=== PATIENT | female | born 1975 ===

== ENCOUNTER 2018-05-31 00:27 | Inpatient (IN) | payer MEDICAID ==
[~2018-05-31] VITALS: Ht 157.5 cm; Wt 88.6 kg
[~2018-05-31 00:27] MED LIST: IBUP-1222 PO; LABE100T6 PO; LISI40TA PO; OXYC-302 PO
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
[2018-05-31 01:00] LABS: BASOPHILS # (AUTO) 0.06 x10^3/uL (0-0.1); BASOPHILS % (AUTO) 1 % (0-1); EOSINOPHILS # (AUTO) 0.22 x10^3/uL (0-0.4); EOSINOPHILS % (AUTO) 2 % (1-7); LYMPHOCYTES # (AUTO) 2.64 x10^3/uL (1-3.4); LYMPHOCYTES % (AUTO) 27 % (22-44); MD NO; MEAN CORPUSCULAR VOLUME 91.1 fL (80-100); MEAN PLATELET VOLUME 8.5 fL (7.4-10.4); MONOCYTES # (AUTO) 0.77 x10^3/uL (0.2-0.8); MONOCYTES % (AUTO) 8 % (2-9); NEUTROPHILS # (AUTO) 6.06 x10^3/uL (1.8-6.8); NEUTROPHILS % (AUTO) 62 % (42-75); PLATELET COUNT 292 x10^3/uL (130-400); RED BLOOD COUNT 5.05 x10^6/uL (3.82-5.3)
[2018-05-31 01:07] LABS: ALANINE AMINOTRANSFERASE 58 U/L (12-78); ALBUMIN 3.9 g/dL (3.4-5.0); ANION GAP 10 mmol/L (5-15); CALCIUM 9.1 mg/dL (8.5-10.1); CHLORIDE 108 mmol/L (98-107); CREATININE 1.01 mg/dL (0.55-1.02)
[2018-05-31 01:09] LABS: ALKALINE PHOSPHATASE 126 U/L (45-117); BILIRUBIN,TOTAL 0.4 mg/dL (0.2-1.0); TOTAL PROTEIN 8.2 g/dL (6.4-8.2)
--- NOTE | 2018-05-31 01:15 | NUR ---
REPORT GIVEN TO BAILEE MANNING
[2018-05-31 01:25] LABS: ACETAMINOPHEN < 2 mcg/mL (10-30); SALICYLATE LEVEL < 1.7 mg/dL (2.8-20.0)
[2018-05-31] MEDS ORDERED: SODIUM CHLORIDE 0.9% 1,000ML IVBOLUS ONE ×2 (01:30→02:30)
[2018-05-31] MEDS ORDERED: ALBUTEROL/IPRATROPIUM 2.5MG/0.5MG, 3 ML ONE (01:34)
[2018-05-31 01:36] LABS: AMPHETAMINE SCREEN, URINE Negative (Negative); BARBITURATE SCREEN, URINE Negative (Negative); BENZODIAZEPINE SCREEN, URINE Negative (Negative); CANNABINOID SCREEN, URINE Negative (Negative); COCAINE SCREEN, URINE Negative (Negative); METHADONE SCREEN, URINE Negative (Negative); OPIATE SCREEN, URINE Negative (Negative)
--- NOTE | 2018-05-31 02:25 | NUR ---
PT C/O CHEST PAIN IN LEFT CHEST, STATED IT FEELS LIKE ELEPHANTS ON HER CHEST. ERP AWARE, HAS GONE IN TO EVAL PT. 2ND IV PLACEMENT BEING ATTEMPTED DUE TO 1ST IV BEING POSITIONAL. WILL CONTINUE TO MONITOR PT. BILAT BEDRAILS UP.
--- NOTE | 2018-05-31 02:45 | NUR ---
2ND IV STARTED, ORDERED 2ND BOLUS HANGING. PT BEING CALM AND COOPERATIVE AT THIS TIME. PT RIGHT HAND HAS BEEN REMOVED FROM RESTRAINTS.
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
--- NOTE | 2018-05-31 04:20 | NUR ---
PT UP TO BATHROOM AGAIN WITH STEADY GAIT. PT CALM. PT GIVEN WARM BLANKET, ON ALL MONITORS. WILL CONTINUE TO MONITOR.
[2018-05-31] MEDS ORDERED: SODIUM CHLORIDE 0.9% 1,000 ML IV ONE (05:00)
--- NOTE | 2018-05-31 05:10 | NUR ---
PT RESTING CALMLY IN BED. ORDERED FLUIDS INFUSING AT THIS TIME.
[2018-05-31] MEDS ORDERED: ONDANSETRON ODT 4 MG PO PRN (06:00)
[2018-05-31] MEDS ORDERED: ACETAMINOPHEN 325 MG TABLET PO PRN (06:00)
[2018-05-31] MEDS ORDERED: BISACODYL 10 MG SUPP PR PRN (06:00)
[2018-05-31] MEDS ORDERED: hydrALAzine 20 MG/ML, 1ML IVPush PRN (06:00)
[2018-05-31] MEDS ORDERED: ONDANSETRON 2MG/ML, 2ML IVPush PRN (06:00)
[2018-05-31] MEDS ORDERED: DOCUSATE 100 MG CAPSULE PO PRN (06:00)
[2018-05-31] MEDS ORDERED: POLYETHYLENE GLYCOL 17 GM PACKET PO PRN (06:00)
[2018-05-31] MEDS ORDERED: POTASSIUM CHLORIDE 40 MEQ in SODIUM CHLORIDE 0.9% 500 ML IV ONE (06:30)
--- NOTE | 2018-05-31 06:30 | NUR ---
ORDERED MEDS STARTED ON PT. PT RESTING SOMULENTLY, HAS BEEN CALM AND FOLLOW COMMANDS. PT A&OX4.
[2018-05-31 06:48] LABS: FREE T4 (FREE THYROXINE) 1.17 ng/dL (0.76-1.46)
[2018-05-31 06:51] LABS: HEMOGLOBIN A1C 5.7 % (4.2-6.3)
[2018-05-31 06:54] LABS: THYROID STIMULATING HORMONE 0.781 mIU/L (0.358-3.740)
--- NOTE | 2018-05-31 06:54 | NUR ---
Recieved bedside report from BAILEE Mcknight. All questions answered. NADN. Pt awake and involved in bedside report. Pt connected to PIV fluids and medications per EMAR. Pt connected to NIBP and continous pulse ox, and conveyor monitor. All safety measures in place. Call light within reach. Sitter near doorway in direct line of sight for observation. No needs expressed.
[2018-05-31 08:39] LABS: MICROSCOPIC AUTO
[2018-05-31 08:43] LABS: CULTURE INDICATED? NO
--- NOTE | 2018-05-31 08:53 | NUR ---
Pt provided breakfast tray. NADN. No needs expressed. Sitter near doorway in direct line of sight for observation.
--- NOTE | 2018-05-31 10:47 | NUR ---
LATE NOTE ENTRY 0900: Pt up to bathroom with ED RN CINDY. Pt back to bed and reconnected to all monitors and PIV fluids and medications. NADN. All safety measures in place. Sitter near doorway in direct line of sight for observation.
--- NOTE | 2018-05-31 10:50 | NUR ---
Pt resting on gurney connected to all monitors. PIV fluids and medications infusing per EMAR. NADN. Pt requesting to call family and let them know she is "okay". Pt aware of plan of care and states verbal understanding. NADN. All safety measures in place. Sitter in direct line of sight for observation.
[2018-05-31] MEDS: SODIUM CHLORIDE 0.9% 1,000 ML IV SCH ×2 (11:51→13:58)
[2018-05-31] MEDS ORDERED: HEPARIN 5,000 UNITS/ML, 1ML ONE (11:56)
[2018-05-31] MEDS: HEPARIN 5,000 UNITS/ML, 1ML SQ SCH ×2 (11:57→21:21)
--- NOTE | 2018-05-31 12:01 | NUR ---
Provided pt medication per EMAR. PIV fluids infusing per EMAR. Pt appreciative. Pt connected to all monitors. NADN. Call light within reach for T.V. Sitter near doorway in direct line of sight for observation. No needs expressed at this time.
[2018-05-31 13:08] LABS: ANION GAP 5 mmol/L (5-15); CALCIUM 8.6 mg/dL (8.5-10.1); CHLORIDE 119 mmol/L (98-107); CREATININE 0.86 mg/dL (0.55-1.02)
--- NOTE | 2018-05-31 13:53 | NUR ---
Pt resting on gurney connected to all monitors. PIV fluids infusing per EMAR. NADN. No needs expressed. Sitter near doorway in direct line of sight for observation.
--- NOTE | 2018-05-31 14:43 | NUR ---
Pt sleeping on gurney connected to all monitors and PIV fluids per EMAR. NADN. No needs expressed. All safety measures in place. Sitter in direct line of sight for observation.
--- NOTE | 2018-05-31 16:34 | NUR ---
LATE NOTE ENTRY FOR 1545: Pt requesting to use restroom. ED staff assisted pt up to restroom. NADN. No needs expressed. Pt back to bed and reconnected to all monitors and PIV fluids infusing per EMAR. Sitter near doorway in direct line of sight for observation.
--- NOTE | 2018-05-31 16:35 | NUR ---
Pt resting on gurney watching TV. NADN. No needs expressed. Pt connected to all monitors. PIV fluids infusing per EMAR. Dinner tray ordered for pt. Sitter near doorway in direct line of sight for observation.
--- NOTE | 2018-05-31 16:50 | NUR ---
Dinner tray provided. Pt appreciative. NADN. No needs expressed. Pt connected to all monitors. PIV fluids infusing per EMAR. Sitter near doorway in direct line of sight for observation.
--- NOTE | 2018-05-31 17:49 | NUR ---
Pt sleeping on gurney connected to all monitors. NADN. PIV fluids infusing per EMAR. No needs expressed at this time. Pt has even chest rise and fall. Sitter near doorway in direct line of sight for observation.
--- NOTE | 2018-05-31 18:32 | NUR ---
Spoke to Selin with poison control who called ED. Case Numer [id number], ph#[phone], states case is closed, pt's symptoms have resolved.
--- NOTE | 2018-05-31 19:09 | NUR ---
Provided report to BAILEE Spencer. All questions answered. BAILEE Spencer assuming care of pt at this time.
--- NOTE | 2018-05-31 20:11 | NUR ---
REPORT GIVEN TO BAILEE MCCALL
[2018-05-31] MEDS ORDERED: LOSA1TAB25 PO (20:42)
[2018-05-31 20:47] VITALS: BP 120/79
[2018-06-01 00:22] VITALS: BP 127/78
[2018-06-01] MEDS: ACETAMINOPHEN 325 MG TABLET PO PRN ×2 (00:29→10:43)
[2018-06-01] MEDS: HEPARIN 5,000 UNITS/ML, 1ML SQ SCH ×2 (05:49→14:01)
[2018-06-01 07:27] LABS: ALBUMIN 3.1 g/dL (3.4-5.0); ANION GAP 8 mmol/L (5-15); CALCIUM 8.9 mg/dL (8.5-10.1); CHLORIDE 109 mmol/L (98-107)
[2018-06-01 07:31] LABS: ALANINE AMINOTRANSFERASE 42 U/L (12-78); ALKALINE PHOSPHATASE 103 U/L (45-117); BILIRUBIN,TOTAL 0.5 mg/dL (0.2-1.0); CHOL/HDL RATIO 5.1; CHOLESTEROL, TOTAL 199 mg/dL (140-239); CREATININE 0.77 mg/dL (0.55-1.02); HDL CHOL % 20 % (28-40); HDL CHOLESTEROL (DIRECT) 39 mg/dL (40-60); LDL CHOLESTEROL,CALCULATED 114 mg/dL (54-169); LDL/HDL RATIO 2.9 (0.5-3.0); TOTAL PROTEIN 6.6 g/dL (6.4-8.2); TRIGLYCERIDES 230 mg/dL (50-200); VLDL CHOLESTEROL 46 mg/dL (0-25)
[2018-06-01 08:00] VITALS: BP 122/86
[2018-06-01 08:04] LABS: BASOPHILS # (AUTO) 0.03 x10^3/uL (0-0.1); BASOPHILS % (AUTO) 1 % (0-1); EOSINOPHILS # (AUTO) 0.23 x10^3/uL (0-0.4); EOSINOPHILS % (AUTO) 4 % (1-7); LYMPHOCYTES # (AUTO) 1.52 x10^3/uL (1-3.4); LYMPHOCYTES % (AUTO) 26 % (22-44); MD NO; MEAN CORPUSCULAR HEMOGLOBIN 30.6 pg (27.0-34.8); MEAN CORPUSCULAR HGB CONC 33.5 g/dL (32.4-35.8); MEAN CORPUSCULAR VOLUME 91.4 fL (80-100); MEAN PLATELET VOLUME 8.8 fL (7.4-10.4); MONOCYTES # (AUTO) 0.58 x10^3/uL (0.2-0.8); MONOCYTES % (AUTO) 10 % (2-9); NEUTROPHILS # (AUTO) 3.55 x10^3/uL (1.8-6.8); NEUTROPHILS % (AUTO) 60 % (42-75); PLATELET COUNT 228 x10^3/uL (130-400); RED BLOOD COUNT 4.59 x10^6/uL (3.82-5.3); RED CELL DISTRIBUTION WIDTH 15.1 % (9.6-15.2)
[2018-06-01 13:28] VITALS: BP 106/71
[2018-06-01 18:36] VITALS: BP 142/84
== END 2018-06-01 20:26 | disposition home or self-care (01) | DRG 918 ==
LOC: ED 05:21 → EDIP 05:58 → 4EST 20:45
PROVIDERS: ADMIT Internal Medicine; ATTEND Internal Medicine
DX: T46.5X2A Poisoning by other antihypertensive drugs, intentional self-harm, initial encounter (principal); E66.9 Obesity, unspecified; E87.6 Hypokalemia; F10.129 Alcohol abuse with intoxication, unspecified; F32.9 Major depressive disorder, single episode, unspecified; G47.00 Insomnia, unspecified; I10 Essential (primary) hypertension; I95.9 Hypotension, unspecified; Y92.89 Other specified places as the place of occurrence of the external cause; Z78.1 Physical restraint status; Z87.442 Personal history of urinary calculi; Z91.5 Personal history of self-harm; Z88.5 Allergy status to narcotic agent; Z79.899 Other long term (current) drug therapy; Z68.35 Body mass index [BMI] 35.0-35.9, adult
CPT/HCPCS: 36415; 80048; 80053; 80061; 80307; 80329; 81001; 83036; 83735; 84439; 84443; 84703; 85025; 93005; 99291; G0378; J1644; J3480; G0480; J7030; J7040